=== PATIENT | male | born 1975 ===

== ENCOUNTER → 2020-12-08 | Outpatient (REF) ==
--- NOTE | 2020-12-08 11:24 | REP ---
INDICATION: INJURY/PAIN. COMPARISON: None. TECHNIQUE: AP and lateral views FINDINGS: No acute fracture or destructive osseous lesion. IMPRESSION: Within normal limits <Electronically signed by Regan Marshall > 12/08/20 1129
== END ==
LOC: M PLAIMG 10:40
PROVIDERS: ATTEND Internal Medicine
DX: Z00.00 Encounter for general adult medical examination without abnormal findings (principal)